=== PATIENT | female | born 1980 | race Hispanic/Latino ===

== ENCOUNTER → 2023-04-30 | Outpatient (CLI) | payer BC | END | disposition home or self-care (01) | LOC: RAH 07:49 | PROVIDERS: ATTEND Nurse Practitioner Adult Health | DX: Z12.31 Encounter for screening mammogram for malignant neoplasm of breast (principal) | CPT/HCPCS: 77067 ==

== ENCOUNTER 2023-05-25 08:55 | Emergency (ER) | payer BC ==
[~2023-05-25] VITALS: Ht 162.6 cm; Wt 68.0 kg
[2023-05-25 09:30] LABS: BASOPHILS # (AUTO) 0.01 K/uL (0.00-0.20); BASOPHILS % (AUTO) 0.2 % (0.0-5.0); EOSINOPHILS # (AUTO) 0.04 K/uL (0.00-0.70); EOSINOPHILS % (AUTO) 0.7 % (0.0-8.0); HEMATOCRIT 41.9 % (36-48); IMMATURE GRANULOCYTE ABSOLUTE 0.03 K/uL (0-1); LYMPHOCYTES # (AUTO) 1.7 K/uL (1.0-4.8); LYMPHOCYTES % (AUTO) 28.7 % (21.0-51.0); MEAN CORPUSCULAR HEMOGLOBIN 29.4 pg (27.0-33.0); MEAN CORPUSCULAR HGB CONC 32.9 g/dL (32.0-36.0); MEAN CORPUSCULAR VOLUME 89.1 fL (79-99); MONOCYTES # (AUTO) 0.5 K/uL (0.1-1.0); MONOCYTES % (AUTO) 7.8 % (3.0-13.0); NEUTROPHILS # (AUTO) 3.7 K/uL (1.8-7.7); NEUTROPHILS % (AUTO) 62.1 % (40.0-77.0); PLATELET COUNT (AUTO) 204 K/uL (130-400); RED CELL DISTRIBUTION WIDTH 12.2 % (11.0-15.5)
[2023-05-25 09:36] LABS: CREATININE 0.8 mg/dL (0.5-1.5); POTASSIUM 4.3 mmol/L (3.5-5.1)
[2023-05-25 09:45] LABS: ALBUMIN 4.7 g/dL (3.5-5.0); BILIRUBIN,TOTAL 0.6 mg/dL (0.2-1.0); TOTAL PROTEIN, SERUM 8.2 g/dL (6.0-8.3)
[2023-05-25 09:58] LABS: APPEARANCE,URINE CLOUDY (CLEAR); BILIRUBIN,URINE NEGATIVE (NEGATIVE); COLOR,URINE YELLOW (YELLOW); GLUCOSE, URINE (UA) NEGATIVE (NEGATIVE); KETONES,URINE 60 mg/dL (NEGATIVE); LEUKOCYTE ESTERASE ,URINE 250 Leu/uL (NEGATIVE); NITRATE,URINE NEGATIVE (NEGATIVE); OCCULT BLOOD,URINE SMALL (NEGATIVE); PROTEIN,URINE 30 mg/dL (NEGATIVE); UROBILINOGEN,URINE 0.2 mg/dL (0.2-1.0)
[2023-05-25 10:02] LABS: ADD UA MICROSCOPIC YES
[2023-05-25 10:16] LABS: HCG,QUALITATIVE URINE NEGATIVE (NEGATIVE)
[2023-05-25] MEDS ORDERED: NITR100C PO (10:24)
[2023-05-25] MEDS ORDERED: CEFTRIAXONE 1G VIAL IM ONE (10:30)
[2023-05-25 10:53] VITALS: BP 124/79; PULSE 68; RESP 17; O2SAT 98
[2023-05-25 11:03] LABS: BACTERIA,URINE FEW /HPF (None Seen); MUCUS,URINE MOD LPF (None Seen); SQUAMOUS EPITHELIAL CELL,UR MOD /HPF (0-2)
== END 2023-05-25 10:57 | disposition home or self-care (01) ==
LOC: EDH 08:55
DX: N39.0 Urinary tract infection, site not specified (principal)
CPT/HCPCS: 99284; 80053; 83690; 85025; 87088; 81001; 81025; 36415; 96372; J0696

== ENCOUNTER → 2024-02-08 | Outpatient (CLI) | payer BC ==
[~2024-02-08] MED LIST: IOHEXOL 350 MG/ML 100ML INFUS..BTL IV ONE; NITR100C PO
== END | disposition home or self-care (01) ==
LOC: RAH 09:19 → EDSTATUS 09:30
PROVIDERS: ATTEND Internal Medicine Gastroenterology
DX: R93.3 Abnormal findings on diagnostic imaging of other parts of digestive tract (principal)
CPT/HCPCS: 74170; Q9967